=== PATIENT | female | born 1960 ===

== ENCOUNTER 2018-07-22 08:46 | Outpatient (CLI) | payer OTHER | END 2018-07-22 15:55 | disposition home or self-care (01) | LOC: RX STUDY 08:46 | DX: N82.3 Fistula of vagina to large intestine (principal); K57.30 Diverticulosis of large intestine without perforation or abscess without bleeding ==

== ENCOUNTER 2018-07-26 06:49 | Day surgery (SDC) | payer OTHER | END 2018-07-26 12:05 | disposition home or self-care (01) | LOC: AMB-ENDOS 06:49 | DX: K57.32 Diverticulitis of large intestine without perforation or abscess without bleeding (principal); N82.3 Fistula of vagina to large intestine; K64.1 Second degree hemorrhoids ==

== ENCOUNTER 2018-07-29 07:10 | Outpatient (CLI) | payer OTHER | END 2018-07-29 07:11 | disposition home or self-care (01) | LOC: RX STUDY 07:10 | DX: N82.3 Fistula of vagina to large intestine (principal); K57.30 Diverticulosis of large intestine without perforation or abscess without bleeding ==

== ENCOUNTER 2018-08-27 09:15 | Inpatient (IN) | payer OTHER ==
[~2018-08-27] VITALS: Ht 160 cm; Wt 68.9 kg
[2018-08-27] MEDS ORDERED: LYRICA150 MG PO (13:24)
[2018-08-27] MEDS ORDERED: VERAPAMIL ER120 MG PO (13:24)
[2018-08-27] MEDS ORDERED: PREDISONE PO (13:24)
[2018-08-27] MEDS ORDERED: SINGULAIR10 MG PO (13:25)
[2018-08-27] MEDS ORDERED: OMEPRAZOLE40 MG PO (13:25)
[2018-08-27] MEDS ORDERED: TRENTAL PO (13:26)
[2018-08-27] MEDS ORDERED: PROAIR HFA8.5 GM IH (13:26)
[2018-08-27] MEDS ORDERED: ZOCOR40 MG PO (13:26)
[2018-08-27] MEDS ORDERED: SPIRIVA RESPIMAT4 G1 IH (13:27)
[2018-08-27] MEDS ORDERED: ASPIR 8181 MG PO (13:27)
[2018-08-27] MEDS ORDERED: PROVENTIL HFA6.7 GM IH (13:28)
[2018-08-27] MEDS ORDERED: LASIX20 MG PO (13:28)
[2018-09-03] MEDS ORDERED: PENTOXIFYLLINE400 MG PO (09:19)
[2018-09-03] MEDS ORDERED: PREDNISONE20 MG PO (09:20)
== END 2018-09-17 14:54 | disposition home or self-care (01) | DRG 330 ==
LOC: O/R 09-03 06:35 → SURG 09-03 06:35 → SURH 09-03 09:15 → SURG 09-03 16:04 → SURH 09-03 17:45 → SURG 09-17 14:54
PROVIDERS: Colon & Rectal Surgery
PROC: 0WUF47Z Supplement Abdominal Wall with Autologous Tissue Substitute, Percutaneous Endoscopic Approach (ICD-10-PCS; 2018-09-03)
PROC: 0D1B4Z4 Bypass Ileum to Cutaneous, Percutaneous Endoscopic Approach (ICD-10-PCS; 2018-09-03)
PROC: 0TQB4ZZ Repair Bladder, Percutaneous Endoscopic Approach (ICD-10-PCS; 2018-09-03)
PROC: 0UQG4ZZ Repair Vagina, Percutaneous Endoscopic Approach (ICD-10-PCS; 2018-09-03)
PROC: 3E0F7GC Introduction of Other Therapeutic Substance into Respiratory Tract, Via Natural or Artificial Opening (ICD-10-PCS; 2018-09-03)
PROC: 0DTN4ZZ Resection of Sigmoid Colon, Percutaneous Endoscopic Approach (ICD-10-PCS; principal; 2018-09-03 17:45)
DX: K57.20 Diverticulitis of large intestine with perforation and abscess without bleeding (principal); N82.3 Fistula of vagina to large intestine; N99.72 Accidental puncture and laceration of a genitourinary system organ or structure during other procedure; K91.89 Other postprocedural complications and disorders of digestive system; I10 Essential (primary) hypertension; E78.49 Other hyperlipidemia; J45.909 Unspecified asthma, uncomplicated

== ENCOUNTER 2018-12-18 07:46 | Outpatient (CLI) | payer OTHER ==
[~2018-12-18 07:46] MED LIST: ASPIR 8181 MG PO; LASIX20 MG PO; LYRICA150 MG PO; OMEPRAZOLE40 MG PO; PENTOXIFYLLINE400 MG PO; PREDISONE PO; PREDNISONE20 MG PO; PROAIR HFA8.5 GM IH; PROVENTIL HFA6.7 GM IH; SINGULAIR10 MG PO; SPIRIVA RESPIMAT4 G1 IH; TRENTAL PO; VERAPAMIL ER120 MG PO; ZOCOR40 MG PO
== END 2018-12-18 07:55 | disposition home or self-care (01) ==
LOC: RX STUDY 07:46
DX: K57.20 Diverticulitis of large intestine with perforation and abscess without bleeding (principal)

== ENCOUNTER 2018-12-19 12:45 | Inpatient (IN) | payer OTHER ==
[~2018-12-19] VITALS: Ht 160 cm; Wt 66.7 kg
== END 2018-12-27 13:32 | disposition home or self-care (01) | DRG 330 ==
LOC: SURH 12-25 09:05 → O/R 12-25 09:05 → SURH 12-25 12:45
PROVIDERS: ADMIT Colon & Rectal Surgery
PROC: 3E0F7GC Introduction of Other Therapeutic Substance into Respiratory Tract, Via Natural or Artificial Opening (ICD-10-PCS; 2018-12-25)
PROC: 0DQB4ZZ Repair Ileum, Percutaneous Endoscopic Approach (ICD-10-PCS; principal; 2018-12-25 14:45)
DX: K57.20 Diverticulitis of large intestine with perforation and abscess without bleeding (principal); K91.89 Other postprocedural complications and disorders of digestive system; K56.7 Ileus, unspecified; N82.3 Fistula of vagina to large intestine; N73.6 Female pelvic peritoneal adhesions (postinfective); I10 Essential (primary) hypertension; E78.49 Other hyperlipidemia; J45.998 Other asthma

== ENCOUNTER 2019-09-12 08:22 | Day surgery (SDC) | payer OTHER | END 2019-09-12 14:26 | disposition home or self-care (01) | LOC: AMB-ENDOS 08:22 | DX: K57.32 Diverticulitis of large intestine without perforation or abscess without bleeding (principal); K64.1 Second degree hemorrhoids ==

== ENCOUNTER 2020-11-13 19:12 | Inpatient (IN) | payer OTHER ==
[~2020-11-13] VITALS: Ht 157.5 cm; Wt 72.6 kg
[2020-11-13] MEDS ORDERED: AMBIEN10 MG (21:09)
[2020-11-13] MEDS ORDERED: TRAMADOL HCL50 MG (21:09)
[2020-11-15] MEDS ORDERED: DICYCLOMINE HCL20 MG (11:08)
[2020-11-15] MEDS ORDERED: PAROXETINE HCL20 MG (11:08)
[2020-11-15] MEDS ORDERED: BACLOFEN20 MG (11:08)
[2020-11-15] MEDS ORDERED: FAMOTIDINE40 MG (11:09)
[2020-11-15] MEDS ORDERED: DULOXETINE HCL30 MG (11:09)
[2020-11-15] MEDS ORDERED: DILTIAZEM HCL120 M1 (11:09)
[2020-11-15] MEDS ORDERED: MULTIVITAMIN1 EACH (11:10)
[2020-11-15] MEDS ORDERED: GLIPIZIDE5 MG (11:10)
[2020-11-15] MEDS ORDERED: FOLIC ACID1 MG (11:10)
[2020-11-15] MEDS ORDERED: SPIRONOLACTONE25 MG (11:11)
[2020-11-17] MEDS ORDERED: INTESTINEX680 M1 PO (13:50)
== END 2020-11-17 14:57 | disposition home or self-care (01) | DRG 812 ==
LOC: ER 19:12 → MEDI 11-14 10:07
PROVIDERS: ADMIT Internal Medicine; ATTEND Internal Medicine
PROC: 30233N1 Transfusion of Nonautologous Red Blood Cells into Peripheral Vein, Percutaneous Approach (ICD-10-PCS; principal; 2020-11-14)
PROC: BW21Y0Z Computerized Tomography (CT Scan) of Abdomen and Pelvis using Other Contrast, Unenhanced and Enhanced (ICD-10-PCS; 2020-11-14)
DX: D64.9 Anemia, unspecified (principal); K92.1 Melena; K57.90 Diverticulosis of intestine, part unspecified, without perforation or abscess without bleeding; I10 Essential (primary) hypertension; E78.5 Hyperlipidemia, unspecified

== ENCOUNTER 2021-01-28 07:27 | Day surgery (SDC) | payer OTHER ==
[~2021-01-28 07:27] MED LIST changes: +AMBIEN10 MG; +BACLOFEN20 MG; +DICYCLOMINE HCL20 MG; +DILTIAZEM HCL120 M1; +DULOXETINE HCL30 MG; +FAMOTIDINE40 MG; +FOLIC ACID1 MG; +GLIPIZIDE5 MG; +INTESTINEX680 M1 PO; +MULTIVITAMIN1 EACH; +PAROXETINE HCL20 MG; +SPIRONOLACTONE25 MG; +TRAMADOL HCL50 MG
== END 2021-01-28 12:00 | disposition home or self-care (01) ==
LOC: AMB-ENDOS 07:27
PROVIDERS: ATTEND Colon & Rectal Surgery
DX: K63.5 Polyp of colon (principal); K29.60 Other gastritis without bleeding; K44.9 Diaphragmatic hernia without obstruction or gangrene; K64.0 First degree hemorrhoids; Z20.822 Contact with and (suspected) exposure to COVID-19

== ENCOUNTER → 2021-07-18 | Outpatient (CLI) | payer OTHER | END | disposition home or self-care (01) | LOC: SONOGRAMA 10:03 | DX: D34 Benign neoplasm of thyroid gland (principal); E06.5 Other chronic thyroiditis; E04.8 Other specified nontoxic goiter ==

== ENCOUNTER 2023-02-26 12:59 | Inpatient (IN) | payer OTHER ==
[~2023-02-26] VITALS: Ht 157.5 cm; Wt 56.7 kg
[2023-02-27] MEDS ORDERED: PRIMIDONE50 MG (15:58)
[2023-02-27] MEDS ORDERED: CYCLOBENZAPRINE10 MG (15:58)
[2023-02-27] MEDS ORDERED: FAMOTIDINE20 MG (15:58)
[2023-02-27] MEDS ORDERED: ZOLPIDEM TARTRA10 MG (15:58)
[2023-02-27] MEDS ORDERED: ATENOLOL25 MG (15:58)
[2023-02-27] MEDS ORDERED: FORTEO2.4 ML (15:58)
[2023-02-27] MEDS ORDERED: FOLIC ACID1 MG (15:59)
[2023-02-27] MEDS ORDERED: ALZ SR CAPLET1 EACH (15:59)
[2023-02-27] MEDS ORDERED: SYNTHROID50 MCG (15:59)
[2023-02-27] MEDS ORDERED: METFORMIN HCL500 M4 (15:59)
[2023-02-27] MEDS ORDERED: DODEX1000 MCG/1 (15:59)
[2023-02-27] MEDS ORDERED: MEMANTINE HCL5 MG (15:59)
[2023-02-27] MEDS ORDERED: REMINYL4 MG (15:59)
[2023-02-27] MEDS ORDERED: GLIPIZIDE5 MG (16:00)
[2023-02-27] MEDS ORDERED: FUROSEMIDE20 MG (16:00)
[2023-02-27] MEDS ORDERED: PREDNISONE20 MG (16:00)
[2023-02-27] MEDS ORDERED: OMEPRAZOLE40 MG (16:00)
[2023-02-27] MEDS ORDERED: MONTELUKAST SOD10 MG (16:00)
[2023-03-06] MEDS ORDERED: DILTIAZEM HCL120 MG PO (12:01)
[2023-03-06] MEDS ORDERED: PAXIL20 MG PO (12:01)
[2023-03-06] MEDS ORDERED: MONTELUKAST SOD10 MG PO (12:01)
[2023-03-06] MEDS ORDERED: CYMBALTA30 MG PO (12:01)
[2023-03-06] MEDS ORDERED: SPIRIVA RESPIMAT4 G1 IH (12:01)
[2023-03-06] MEDS ORDERED: ZOCOR40 MG PO (12:01)
[2023-03-06] MEDS ORDERED: Neurin-Sl Tablet Sl SL (12:01)
[2023-03-06] MEDS ORDERED: ZOLPIDEM TARTRA10 MG PO (12:01)
[2023-03-06] MEDS ORDERED: B Complex PO (12:01)
== END 2023-03-06 14:00 | disposition home or self-care (01) | DRG 689 ==
LOC: ER 12:59 → MEDJ 23:25 → SEC-K 23:25 → MEDJ 02-27 04:25
PROVIDERS: ADMIT Internal Medicine; ATTEND Internal Medicine
PROC: 3E0F7GC Introduction of Other Therapeutic Substance into Respiratory Tract, Via Natural or Artificial Opening (ICD-10-PCS; principal; 2023-02-28)
PROC: 4A12X4Z Monitoring of Cardiac Electrical Activity, External Approach (ICD-10-PCS; 2023-02-28)
PROC: BW21YZZ Computerized Tomography (CT Scan) of Abdomen and Pelvis using Other Contrast (ICD-10-PCS; 2023-02-28)
DX: N39.0 Urinary tract infection, site not specified (principal); K85.90 Acute pancreatitis without necrosis or infection, unspecified; K57.20 Diverticulitis of large intestine with perforation and abscess without bleeding; D50.9 Iron deficiency anemia, unspecified; E11.9 Type 2 diabetes mellitus without complications; Z79.4 Long term (current) use of insulin; I10 Essential (primary) hypertension